=== PATIENT | male | born 1950 | race Caucasian/White ===

== ENCOUNTER 2017-04-17 09:55 | Day surgery (SDC) | payer MEDICARE, OTHER ==
[~2017-04-17] VITALS: Ht 175.3 cm; Wt 91.6 kg
[~2017-04-17 09:55] MED LIST: ACETAMINOPHEN-1 EACH PO; CALCIUM + D SO1 EACH; CENTRUM SILVER1 EAC4 PO; DICLOFENAC-MIS1 EAC2 PO; DIOVAN160 MG PO; FISH OIL 1,0001 EAC2 PO; FLUTICASONE PRO16 GM NS; FOLGARD TABLET1 EAC1 PO; GLIPIZIDE10 MG PO; HYDROCODON-ACE1 EA11 PO; KLOR-CON 1010 MEQ PO; METFORMIN HCL500 MG PO; MIRALAX17 GM PO; NATEGLINIDE120 MG PO; NATEGLINIDE60 MG PO; NORCO 5-325 TA1 EACH PO; OMEPRAZOLE20 MG PO; OXYCODONE HCL5 MG PO; TOPROL XL100 MG PO; TRAMADOL HCL50 MG PO; TRIAMTERENE-HC1 EAC3 PO; VIACTIV SOFT C1 EACH PO; VITAMIN B12-FO1 EACH SL; XARELTO10 MG PO
[2017-04-17] MEDS ORDERED: FLOMAX0.4 MG PO (10:12)
[2017-04-17] MEDS ORDERED: OXYCODON-ACETA1 EAC2 PO (12:54)
[2017-04-17] MEDS ORDERED: IBUPROFEN600 MG PO (12:54)
[2017-04-17] MEDS ORDERED: MAPAP325 MG PO (12:54)
--- NOTE | 2017-04-17 13:10 | NUR ---
04/17/17 1310 Jo Ann Membreno 1304 PT REPORTING PAIN 09/27, MEDICATIONS GIVEN.
--- NOTE | 2017-04-17 13:25 | NUR ---
PT ARRIVED FROM PACU. AWAKE AND RESPONDING TO QUESTIONS AND CARRYING ON CONVERSATION. PT TOLERATING PO FLUID AND FOOD. PT REPROTS 2/10 PAIN BUT DOES NOT WANT TO TAKE A PAIN PILL AT THIS TIME. BED RAILS UP, CALL LIGHT WITHIN REACH
--- NOTE | 2017-04-17 13:40 | NUR ---
PT REQUESTS TURKEY SANDWICH AND SOUP. PT CONTINUES TO DENY NAUSEA. PAIN REMAINS AT 2/10. ORDER CALLED TO DIETARY.
--- NOTE | 2017-04-17 15:25 | NUR ---
LE 1540: PT UP TO BR W/RN STANDBY. PT AMBULATES WELL AND REPORTS INCREASED PAIN WITH AMBULATING. PT DENIES DIZZINESS. PT VOIDS 350 ML CLEAR YELLOW URINE AND IS BACK IN BED. PRN GIVEN FOR PAIN. LE 1510: PT PUSHES CALL LIGHT AND REPORTS "MY PAIN IS BETTER. I'D LIKE TO GO HOME." VERBAL DC INSTRUCTIONS GIVEN AND PT VERBALIZES UNDERSTANDING. PT DRESSES SELF AND TRANSFERS SELF TO WC AND PERSONAL VEHICLE WELL.
--- NOTE | 2017-04-18 08:54 | OR ---
[facility] [address] [place], [place] [address] Signed DATE OF OPERATION: 04/17/2017 SURGEON: Salomon Bennett MD PREOPERATIVE DIAGNOSIS: Left inguinal hernia. POSTOPERATIVE DIAGNOSIS: Left direct inguinal hernia. PROCEDURE: 1. Repair of left direct inguinal hernia. 2. Implantation of Prolene mesh (underlay technique). SURGEON: Salomon Bennett MD. ANESTHESIA: General LMA (Meenakshi Yono CRNA) and local 20 mL of 0.25% Marcaine with epinephrine. INDICATION: This 66-year-old white man is a patient of Dr. Esequiel Rodriguez and has undergone a gastric bypass operation, losing over 150 pounds. He has a rather sizable pannus, but also now has revealed a left inguinal hernia, which is reducible. It is slightly uncomfortable. He is admitted to undergo repair. Understand the risks of bleeding, infection, recurrence, and other unforeseen complications. FINDINGS: A direct defect was noted. It subsumed most of the floor of the inguinal canal. Invagination of the properitoneal fat that was herniated was undertaken and implantation of Prolene mesh in the properitoneal space undertaken with optimal repair accomplished. There was no obvious ilioinguinal nerve branch associated with the cord that was seen. DESCRIPTION OF PROCEDURE: The patient was brought to the operating room, given a general LMA-type anesthetic. Preoperative antibiotic Ancef was given. Sequential compression device stockings used and heparin subcutaneously administered. The lower abdomen was clipped and prepared with a chlorhexidine solution and draped sterilely. His abdominal pannus, which was far smaller than in the past was still somewhat in the way and on that basis, the abdominal pannus sterile tracking system used to elevate the abdominal wall. This exposed the left groin nicely. An incision was made cephalad to the pubic tubercle in the line of skin tension. Dissection carried through the subcutaneous tissue with electrocautery. The external oblique was identified and incised along its fibers revealing the underlying cord and bulky hernia. No obvious ilioinguinal nerve branch was noted at this point. Electronically Signed By: SALOMON BENNETT MD 04/18/17 0854 PATIENT NAME: GURDEEP JEFFERS OPERATIVE REPORT DATE OF : 48 PHYSICIAN: SALOMON BENNETT MD REPORT #: [id number] REPORT IS CONFIDENTIAL AND NOT TO BE RELEASED WITHOUT AUTHORIZATION [facility] [address] [place], [place] [address] Signed Using blunt and electrocautery dissection, the cord was freed from the canal and encircled with a Corrina drain. With blunt dissection and a bit of electrocautery for the cremasteric muscle fibers, the bulky hernia could be identified. It was not an indirect type, but rather a bulky direct type, much of the floor was quite attenuated allowing for herniation of properitoneal fat. The attenuated fibers of the fascia of the transversalis were gently incised with electrocautery and the fat that had herniated was replaced into the properitoneal space. The shelving edge of Poupart's ligament was easily identified. A segment of Prolene mesh was cut in an elliptical configuration and secured in an underlay technique with interrupted 2-0 Prolene sutures. The mesh was implanted in an underlay technique. The tails of the graft were carried around the cord laterally and secured laterally as well, taking special care to avoid encumbrance of any nerve branches. Good repair was noted. 20 mL of 0.25% Marcaine with epinephrine was injected locally. The cord was placed into the canal. External oblique was reapproximated with running 2-0 Vicryl suture. Allison's layer was reapproximated with interrupted 3-0 Vicryl and skin closed with running subcuticular 3-0 Vicryl. Steri-Strips were applied as was a Mepilex silver sponge dressing and an OpSite. The patient was ultimately extubated and transported to recovery in good condition having suffered no complications. Sponge, needle, and instruments counts reported as correct x3. MD HECTOR Bhatti/MODL /[id number] cc: Esequiel Rodriguez MD Electronically Signed By: SALOMON BENNETT MD 04/18/17 0854 PATIENT NAME: GURDEEP JEFFERS OPERATIVE REPORT DATE OF : 48 PHYSICIAN: SALOMON BENNETT MD REPORT #: [id number] REPORT IS CONFIDENTIAL AND NOT TO BE RELEASED WITHOUT AUTHORIZATION
== END 2017-04-17 15:20 | disposition home or self-care (01) ==
LOC: DS 09:55
PROVIDERS: Surgery
PROC: 0YU60JZ Supplement Left Inguinal Region with Synthetic Substitute, Open Approach (ICD-10-PCS; principal; 2017-04-17 12:15)
DX: K40.90 Unilateral inguinal hernia, without obstruction or gangrene, not specified as recurrent (principal); I10 Essential (primary) hypertension; E78.00 Pure hypercholesterolemia, unspecified; E11.9 Type 2 diabetes mellitus without complications; M19.90 Unspecified osteoarthritis, unspecified site; Z98.41 Cataract extraction status, right eye; Z98.42 Cataract extraction status, left eye; Z88.8 Allergy status to other drugs, medicaments and biological substances; Z96.653 Presence of artificial knee joint, bilateral; Z90.49 Acquired absence of other specified parts of digestive tract; Z98.84 Bariatric surgery status; Z98.890 Other specified postprocedural states; Z79.899 Other long term (current) drug therapy
CPT/HCPCS: 00830; C1781; J0690; J1100; J1644; J2250; J2270; J2405; J2704; J3010; J7120

== ENCOUNTER 2022-11-25 13:30 | Observation (INO) | payer MEDICARE, OTHER ==
[~2022-11-25] VITALS: Ht 175.3 cm; Wt 88.4 kg
--- OUTSIDE RECORDS SUMMARY | ~2022-11-25 | XMS | Continuity of Care Document ---
Demographics + + + | Address | [address] | | | [place] [address] | + + + | Preferred Language | Unknown | + + + | Marital Status | | + + + | Uatsdin Affiliation | Unknown | + + + | Race | White | + + + | Ethnic Group | Unknown | + + + Author + + + | Author | [facility] | + + + | Organization | [facility] | + + + | Address | [address] | | | [place] [address] | + + + | Phone | | + + + Care Team Providers + + + + | Care Patient Intake Representative Name | Role | Phone | + + + + Unavailable | Unavailable | + + + + Allergies and Intolerances + + + + + | date | description | facility | type | + + + + + | (no date) | amlodipine | [facility] | (unknown) | + + + + + Encounters No information. Functional Status No information. Immunizations No information. Medications No information. Problems No information. Procedures No information. Results/Labs No information. Social History No information. Vital Signs No information."
[~2022-11-25 13:30] MED LIST changes: +FLOMAX0.4 MG PO; +IBUPROFEN600 MG PO; +MAPAP325 MG PO; +OXYCODON-ACETA1 EAC2 PO
[2022-11-25] MEDS ORDERED: OZEMPIC0.25 MG/0. (13:54)
[2022-11-25 14:30] LABS: BASOPHILS 0.4 % (0-2); EOSINOPHILS 0.3 % (0-6); HEMATOCRIT 31.7 % (35.0-50.0); HEMOGLOBIN 10.7 g/dL (12.0-18.0); LYMPHOCYTES 8.7 % (24-44); MCH 29.6 (27-36); MCHC 33.7 g/dl (30-36); MCV 87.8 fl (81-99); MONOCYTES 13.5 % (0-12); NEUTROPHILS 77.1 % (39-80); PLATELET COUNT 328 K/uL (140-440); RBC 3.61 M/ul (4.3-5.7); RDW 13.9 (10.5-15.0)
[2022-11-25 14:46] LABS: ALBUMIN 3.2 g/dL (3.4-5.0); ALBUMIN/GLOBULIN RATIO 0.89 (1.1-2.4); ANION GAP 22.5 (7-21); BILIRUBIN, TOTAL 0.4 ng/dL (0.2-1.0); BUN/CREATININE RATIO 18.75 (6.0-28.6); CALCIUM 8.5 mg/dL (8.5-10.1); CREATININE, SERUM 6.24 mg/dL (0.70-1.30); POTASSIUM 4.5 mmol/L (3.5-5.1); PROTEIN, TOTAL 6.8 g/dL (6.4-8.2)
[2022-11-25 16:06] LABS: BILIRUBIN, URINE NEGATIVE (negative); BLOOD/HGB, URINE TRACE-I (Negative); KETONE, URINE NEGATIVE (Negative); LEUK ESTERASE, URINE NEGATIVE (negative); NITRITE, URINE NEGATIVE (negative); PH, URINE 5.5 (5-7)
[2022-11-25 16:17] LABS: BACTERIA, URINE RARE /hpf (negative); CRYSTALS, URINE NONE SEEN (0-1+); EPITHELIAL CELLS, URINE SQUAMOUS 2+ /lpf (0-1+); RED BLOOD CELLS, URINE 0-1 /hpf (0-5); WHITE BLOOD CELLS, URINE 0-1 /HPF (0-5)
[2022-11-25 16:18] LABS: COLLECTION TYPE, URINE CATH; REFLEX CULTURE, URINE No (No)
[2022-11-25 18:06] LABS: BASE EXCESS, BLOOD GAS -20.7 mmol/L (-2-2); O2 SATURATION, BLOOD GAS 97.2 % (95.0-100.0); PCO2, BLOOD GAS 16.4 mmHg (35-45); PH, BLOOD GAS 7.17 (7.35-7.45); PO2, BLOOD GAS 98 mmHg (80-100); TOTAL CO2, BLOOD GAS 6.6
[2022-11-25 18:07] LABS: OXYGEN RECEIVED, BLOOD GAS ROOM AIR
[2022-11-25 19:00] VITALS: BP 118/69
[2022-11-25 20:00] VITALS: BP 124/63
--- NOTE | 2022-11-25 22:45 | NUR ---
PT UP TO BATHROOM FOR BM, HE HAD SMALL INCONT IN BED, PT NOTED TO NOT HAVE STEADY GAIT, AMBULATED WITH ONE PERSON ASSIST WITH LINE MANAGEMENT. WARM BLANKETS PROVIDED. HE IS ALERT AND ORIENTED, HE HAD MEDIUM LIQUID BM LIGHT BROWN. PT HAS NO FURTHER CONCERNS AT THIS TIME.
[2022-11-25 23:32] LABS: PH, VENOUS 7.249 (7.31-7.41)
--- NOTE | 2022-11-26 00:08 | NUR ---
DR. GROSSMAN HAS ORDERED 1 AMP OF BICARB TO BE GIVEN. ORDERED AND CARRIED OUT IN [facility]
--- NOTE | 2022-11-26 00:29 | NUR ---
RT NOTIFIED OF CPAP USE AT HOME. DISCUSSED PLAN WITH PATIENT AND HE WANTS TO TRY TO NOT USE A CPAP TONIGHT. OFFERED ONE OF OURS AND HE DECLINED. ENCOURAGED HIM TO HAVE BRING IN HIS MACHINE TOMORROW. CALL RT WITH ANY CONCERNS.
--- NOTE | 2022-11-26 03:46 | NUR ---
PT CALLED FOR ASSISTANCE TO USE THE BATHROOM, ONE PERSON ASSIST FOR CORD MANAGEMENT, PT IS NOTED TO BE MILDLY DISCORDINATED WITH GAIT. PT HAD LIQUID BM AND MIXED VOID
--- NOTE | 2022-11-26 03:50 | NUR ---
PT CALLED FOR ASSISTANCE TO BATHROOM TO HAVE BM, PT ONE PERSON WITH CORD MANAGEMENT, LARGE LIQUID BM.
--- NOTE | 2022-11-26 03:59 | NUR ---
PATIENT HAS REQUESTED A CPAP MACHINE THINKING THAT IT WILL HELP HIS HEART. OFFERED TO CALL HIS , ALTHOUGH HE SAID HE DOESNT WANT TO WAKE HER UP. REASSURED HIM THAT IT IS 0400 IN THE MORNING AND HE WILL ONLY HAVE IT ON FOR MAYBE A FEW HOURS. PATIENT IS SATING A GOOD 95% HAS NOT DESATED. HR IS SINUS WITH OCASSIONAL PVCS.
[2022-11-26 04:12] VITALS: BP 127/60
[2022-11-26 05:36] LABS: ALBUMIN 2.6 g/dL (3.4-5.0); ALBUMIN/GLOBULIN RATIO 0.9 (1.1-2.4); BILIRUBIN, TOTAL 0.3 ng/dL (0.2-1.0); BUN/CREATININE RATIO 20.64 (6.0-28.6); CALCIUM 8.1 mg/dL (8.5-10.1); CREATININE, SERUM 4.99 mg/dL (0.70-1.30); PROTEIN, TOTAL 5.5 g/dL (6.4-8.2)
[2022-11-26 05:46] LABS: PH, VENOUS 7.282 (7.31-7.41)
[2022-11-26 05:51] LABS: BASOPHILS 0.5 % (0-2); EOSINOPHILS 2.5 % (0-6); HEMOGLOBIN 8.6 g/dL (12.0-18.0); LYMPHOCYTES 14.4 % (24-44); MCHC 34.6 g/dl (30-36); MCV 86.7 fl (81-99); MONOCYTES 17.1 % (0-12); NEUTROPHILS 65.5 % (39-80); PLATELET COUNT 293 K/uL (140-440); RBC 2.88 M/ul (4.3-5.7)
--- NOTE | 2022-11-26 07:00 | NUR ---
K IS 3 THIS AM. RECIEVED AN ORDER TO REPLACE WITH 30 MEQ IV. ALSO, VBG SHOWED RESULTS OF 7.28/17.5/113/8.3. RECIEVED AN ORDER TO REPLACE WITH A BICARB DRIP WITH 3 AMPS OF BICARB. ALSO, PATIENT HAS WENT INTO AFIB CONFIRMED BY A 12-LEAD AND RECIEVED AN ORDER FOR METOPROLOL 50MG BID.
--- NOTE | 2022-11-26 07:20 | NUR ---
THIS RN INTO CHECK IVF PUMP, PT ALERT AND ORIENTED SAID "JUST IN TIME, I NEED TO USE THE BATHROOM" THIS RN ASSISTED PT UP TO BATHROOM PRIMARY RN SAID OK TO AMBULATE, PT HAD LARGE LIQUID BM
--- NOTE | 2022-11-26 08:24 | NUR ---
DR. GROSSMAN IN ROOM TO SEE PATIENT AND DISCUSS POTENTIAL TRANSFER TO OTHER HOSPTIAL. PT RESISTANT TO THIS AND WOULD LIKE TO STAY HERE IF AT ALL POSSIBLE. DISCUSSED WITH PT HIS NEW ONSET AFIB, AND TREATMENT OPTIONS. PT NOW BACK IN SINUS RHYTHM, BUT HAS BEEN NOTED TO BE IN AND OUT OF AFIB THROUGH THE NIGHT, EVEN YESTERDAY IN ER PER TUBERCULOSIS SPECIALIST. SODIUM BICARB GTT STARTED AT 125 ML/HR AND IV POTASSIUM STARTED PER EMAR. PT DENIES PAIN OR SHORTNESS OF BREATH. PT NOW EATING BREAKFAST IN BED. PT'S SULTANA TO BE COMING IN THIS AM AND WILL FURTHER DISCUSS WITH HER WHEN SHE ARRIVES. LOU DRAINING CLEAR YELLOW URINE.
[2022-11-26 08:50] LABS: TSH, 3RD GENERATION 0.436 uIU/mL (0.358-3.740)
[2022-11-26 09:02] VITALS: BP 163/90
--- NOTE | 2022-11-26 09:13 | NUR ---
DR. GROSSMAN IN ROOM NOW DISCUSSING WITH PT AND HIS HIS ELEVATED TROPONIN LEVEL OF 4290.8. REPEAT TROP NOW ORDERED. ORDERS REC'D TO START PT ON HEPARIN GTT. PENDING FURTHER ORDERS.
[2022-11-26 09:22] LABS: HEMOGLOBIN 9.4 g/dL (12.0-18.0); MCH 29.8 (27-36)
[2022-11-26 09:24] LABS: BASOPHILS 0.5 % (0-2); HEMATOCRIT 27.2 % (35.0-50.0); MCHC 34.4 g/dl (30-36); MCV 86.5 fl (81-99); NEUTROPHILS 70.5 % (39-80); PLATELET COUNT 320 K/uL (140-440); RBC 3.14 M/ul (4.3-5.7)
[2022-11-26 09:29] LABS: INR 1.21 (0.80-1.30); PROTIME 14.9 Sec (11.2-14.2)
--- NOTE | 2022-11-26 09:57 | NUR ---
PATIENT STARTED ON HEPARIN GTT AT 12UNITS/KG/HR, FOLLOWING HEPARIN PROTOCOL. 4000 UNIT BOLUS WAS GIVEN IV FIRST. NEW IV STARTED IN LEFT FOREARM. PT'S SULTANA IN ROOM AND ALL OF THESE THINGS DISCUSSED WITH HER WELL. QUESTIONS ANSWERED BEST POSSIBLE. PT IS TO BE TRANSFERRED OUT AND ACCEPTING FACILITY IS BEING SOUGHT OUT CURRENTLY. WILL CONTINUE TO MONITOR.
--- NOTE | 2022-11-26 10:15 | NUR ---
CALLS PLACED TO [facility] AND [facility] FOR TRANSFER OF PT. [facility] ACCEPTED, WAITING FOR BED SPACE
--- NOTE | 2022-11-26 11:01 | NUR ---
[facility] CREW HERE TO TAKE PATIENT TO [facility].
[2022-11-26 11:02] VITALS: BP 123/69
[2022-11-27 13:00] LABS: C. DIFF TOXIN B GENE TCDB,PCR Not Detected (())
--- NOTE | 2022-11-29 19:41 | EKG ---
[facility] [address] [facility] [address] [facility] [place] [address] Signed Atrial fibrillation with rapid ventricular response Left anterior fascicular block Possible Anterolateral infarct , age undetermined Abnormal ECG Confirmed by LISANDRO CYR MD ([id number]) on 11/29/2022 7:41:41 PM Electronically Signed By: LISANDRO CYR 11/29/221940 PATIENT NAME: GURDEEP JEFFERS Electrocardiogram DATE OF : 48 PHYSICIAN: LISANDRO CYR REPORT #: [id number] REPORT IS CONFIDENTIAL AND NOT TO BE RELEASED WITHOUT AUTHORIZATION
== END 2022-11-26 11:15 | disposition home or self-care (01) ==
LOC: ED 13:30 → CCU 13:33
PROVIDERS: Emergency Medicine; ADMIT Internal Medicine; ATTEND Internal Medicine
DX: N17.9 Acute kidney failure, unspecified (principal); E86.0 Dehydration; I48.91 Unspecified atrial fibrillation; E11.9 Type 2 diabetes mellitus without complications; I10 Essential (primary) hypertension; E78.00 Pure hypercholesterolemia, unspecified
CPT/HCPCS: 36415; 36600; 51702; 74018; 80053; 81001; 82803; 83605; 83735; 84443; 84484; 85025; 85610; 85730; 87045; 87046; 87493; 93005; 93010; 96375; 96376; 99285-25; G0378; J1644; J1815; J3480; J3490; J7030; J7060; J7070; J7121

== ENCOUNTER 2023-06-04 07:20 | Day surgery (SDC) | payer MEDICARE, OTHER ==
[~2023-06-04] VITALS: Ht 175.3 cm; Wt 87.3 kg
[~2023-06-04 07:20] MED LIST changes: +AMOXICILLIN500 MG PO; +ATACAND32 MG PO; +ISOSORBIDE MONO30 MG PO; +LIPITOR40 MG PO; +NITROSTAT0.4 MG SL; +OZEMPIC0.25 MG/0.; +SOAANZ20 MG PO; +VAZALORE81 MG PO; +ZYLOPRIM100 MG PO
[2023-06-04 07:47] VITALS: BP 161/84
[2023-06-04 10:25] VITALS: BP 123/67
--- NOTE | 2023-06-05 13:59 | OR ---
[facility] [address] [place], [place] [address] Signed DATE OF OPERATION: 06/04/2023 SURGEON: Salomon Bennett MD PREOPERATIVE DIAGNOSIS: Colon screening. POSTOPERATIVE DIAGNOSES: 1. Diverticulosis. 2. Polyps x2 (transverse and rectum). PROCEDURE: Total colonoscopy to cecum with cold morcellation polypectomy x2. ANESTHESIA: Intravenous sedation; fentanyl 150 mcg and Versed 6 mg. INDICATION: This 72-year-old white man is a patient of Dr. Gurdeep Fischer, who last underwent colonoscopy and upper endoscopy in 2010. At the time of his colonoscopy previously the indication was for anemia. Notably, the patient has undergone gastric bypass and went from 325 pounds to 180 pounds. Previous findings included diverticular changes. He is admitted at this time to undergo surveillance screening colonoscopy. He understands the risk of bleeding, infection, and perforation. Notably, he has no family history of colon cancer. FINDINGS: The prep was adequate. Complete colonoscopy was undertaken with visualization of the cecum, but not intubation of it. He had numerous diverticula. Two small polyps were noted, one in the transverse colon and the other in the rectum, both excised with cold polypectomy technique. DESCRIPTION OF PROCEDURE: The patient was brought to the endoscopy suite and placed in the lateral decubitus position, given intravenous sedation to the point of slurred speech and nystagmus. Digital rectal examination was normal. An Olympus video colonoscope was passed in the rectum and manipulated throughout the colon noting numerous diverticula of the sigmoid and left colon. The scope was ultimately advanced until visualization of the cecum. A biopsy forceps was used to Electronically Signed By: SALOMON BENNETT MD 06/05/23 1359 PATIENT NAME: GURDEEP JEFFERS OPERATIVE REPORT DATE OF : 48 REPORT #: [id number] PHYSICIAN: SALOMON BENNETT MD PCP: GURDEEP FISCHER MD REPORT IS CONFIDENTIAL AND NOT TO BE RELEASED WITHOUT AUTHORIZATION [facility] [address] [place] [id number] Signed elevate the mucosa behind the ileocecal valve to inspect showing no sign of abnormality. The scope was then withdrawn and in the proximal transverse colon, a small polyp was noted, this was excised with cold morcellation technique. Further withdrawal showed diverticula once again and in the rectum, another small adenomatous appearing polyp excised by cold morcellation technique as well. Retroflexed view was normal. Scope was removed and the patient was taken to the recovery room in good condition. CONCLUDING DIAGNOSES: 1. Diverticulosis. 2. Polyps x2. PLAN: Recommend repeat colonoscopy in 5 years based on polyp, sooner if symptoms should develop of course. He will return to the ongoing care of Dr. Fischer otherwise. MD HECTOR Bhatti/SASCHAL /[id number] cc: Gurdeep Fischer MD Copies: GURDEEP FISCHER DMD ~ Electronically Signed By: SALOMON BENNETT MD 06/05/23 1359 PATIENT NAME: ZEYADGURDEEP NUPUR OPERATIVE REPORT DATE OF : 48 REPORT #: [id number] PHYSICIAN: SALOMON BENNETT MD PCP: GURDEEP FISCHER MD REPORT IS CONFIDENTIAL AND NOT TO BE RELEASED WITHOUT AUTHORIZATION
== END 2023-06-04 10:22 | disposition home or self-care (01) ==
LOC: OPS 07:20 → DS 07:23 → OPS 08:15
PROVIDERS: ATTEND Surgery
PROC: 0DBL8ZX Excision of Transverse Colon, Via Natural or Artificial Opening Endoscopic, Diagnostic (ICD-10-PCS; 2023-06-04)
PROC: 0DBP8ZX Excision of Rectum, Via Natural or Artificial Opening Endoscopic, Diagnostic (ICD-10-PCS; principal; 2023-06-04 08:15)
DX: Z12.11 Encounter for screening for malignant neoplasm of colon (principal); D12.3 Benign neoplasm of transverse colon; D12.8 Benign neoplasm of rectum; K57.30 Diverticulosis of large intestine without perforation or abscess without bleeding; Z88.8 Allergy status to other drugs, medicaments and biological substances; Z79.82 Long term (current) use of aspirin; Z79.84 Long term (current) use of oral hypoglycemic drugs; Z79.899 Other long term (current) drug therapy
CPT/HCPCS: 88305; 99153; G0500; J0690; J2250; J3010; J7121

== ENCOUNTER 2025-04-16 20:42 | Emergency (ER) | payer OTHER, MEDICARE ==
[~2025-04-16] VITALS: Ht 175.3 cm; Wt 81.1 kg
[2025-04-16 21:19] VITALS: BP 227/98
== END 2025-04-16 21:15 | disposition home or self-care (01) ==
LOC: ED 20:42
DX: S61.210A Laceration without foreign body of right index finger without damage to nail, initial encounter (principal); I10 Essential (primary) hypertension; E11.9 Type 2 diabetes mellitus without complications; W54.1XXA Struck by dog, initial encounter; Z79.82 Long term (current) use of aspirin; Z79.51 Long term (current) use of inhaled steroids; Z79.84 Long term (current) use of oral hypoglycemic drugs; Z79.899 Other long term (current) drug therapy; Z88.8 Allergy status to other drugs, medicaments and biological substances; Z87.891 Personal history of nicotine dependence
CPT/HCPCS: 99282